=== PATIENT | female | born 1980 ===

== ENCOUNTER 2016-04-13 02:48 | Emergency (ER) | payer OTHER | END 2016-04-13 03:44 | disposition home or self-care (01) | LOC: ED 02:48 | DX: R11.2 Nausea with vomiting, unspecified (principal); R19.7 Diarrhea, unspecified ==

== ENCOUNTER 2016-04-15 06:51 | Day surgery (SDC) | payer OTHER ==
[2016-04-15] MEDS ORDERED: IV START KIT ONE (06:55)
[2016-04-15] MEDS ORDERED: LIDOCAINE Viscous 2% 15 ML UDCUP PO PRN (06:56)
[2016-04-15] MEDS ORDERED: FENTANYL 250 MCG/5 ML AMP IV PRN (06:56)
[2016-04-15] MEDS ORDERED: MIDAZOLAM HCL 5 MG/5 ML VIAL IV PRN (06:56)
[2016-04-15] MEDS ORDERED: LACTATED RINGERS 1,000 ML IV SCH (07:00)
[2016-04-15] MEDS ORDERED: FENTANYL 100 MCG/2 ML VIAL ONE (07:44)
[2016-04-15 12:03] LABS: HELICOBACTER PYLORII DETECTION NEGATIVE (NEGATIVE)
--- NOTE | 2016-04-19 15:21 | SURGPATH ---
[facility] [address] [place] [id number] Patient Name: JAKI BALTAZAR MR#: [id number] : 1980 Gender: F Specimen #: [id number] Collected: 04/15/2016 Received: 04/18/2016 Reported: 04/19/2016 Submitting Phys: EVARISTO JARA Copy To Phys: [facility] Clinical History / Pre-Operative Diagnosis: Epigastric pain; nausea/vomiting; rule out giardia, celiac sprue and gastritis Specimen Source / Surgical Procedure Performed: #1-DUODENAL BIOPSY; #2-ANTRAL BIOPSY Interpretation: 1. DUODENUM, BIOPSY: - NO DIAGNOSTIC ABNORMALITIES 2. STOMACH, ANTRUM, BIOPSY: - MINIMAL CHRONIC ANTRAL GASTRITIS WITH FOCAL ACTIVITY - NO HELICOBACTER ORGANISMS SEEN ON IMMUNOSTAIN Electronically Signed Out Mikaela Curran M.D. Gross Description: #1 The specimen is received in a formalin filled container labeled with the patient's name and "duodenal biopsy". Three rivera biopsies are 0.3, 0.3 and 0.4 cm. Totally embedded in cassette #1. #2 The specimen is received in a formalin filled container labeled with the patient's name and "antral biopsy". Two rivera biopsies are 0.3 and 0.5 cm. Totally embedded in cassette #2. Chris Bergeron Microscopic Description: Part 1: Sections show duodenal mucosa with overall intact architecture with a villous to crypt ratio of three to one. No increased intraepithelial lymphocytes, gastric metaplasia, active duodenitis, or evidence of Giardia are seen on routine stain. No malignancy is seen. Part 2: Sections show gastric antral and oxyntic mucosa with overall intact architecture. Minimal chronic inflammation is seen with focal active inflammation. No dysplasia or malignancy is seen. A Helicobacter immunostain is negative for Helicobacter organisms. (Analyte-specific reagents (ASR) are used in many laboratory tests necessary for standard medical care and generally do not require FDA approval. This test was developed and its performance characteristics determined by [facility]. It has not been cleared or approved by the U.S. Food and Drug Administration. [employer] [facility] is certified under the Clinical Laboratory Improvement Amendments of 1988 as qualified to perform high complexity clinical laboratory testing. All controls stain as expected.) 1: 63346 2: 60504, 51868 K29.30
== END 2016-04-15 09:05 | disposition home or self-care (01) ==
LOC: SDC 06:51
PROVIDERS: ATTEND Internal Medicine Gastroenterology
PROC: 0DB98ZX Excision of Duodenum, Via Natural or Artificial Opening Endoscopic, Diagnostic (ICD-10-PCS; principal; 2016-04-15)
PROC: 0DB68ZX Excision of Stomach, Via Natural or Artificial Opening Endoscopic, Diagnostic (ICD-10-PCS; 2016-04-15)
DX: K29.50 Unspecified chronic gastritis without bleeding (principal); K29.80 Duodenitis without bleeding